=== PATIENT | male | born 1965 | race Caucasian/White ===

== ENCOUNTER 2022-01-02 08:36 | Outpatient (REF) | payer BC, SELFPAY ==
--- NOTE | ~2022-01-02 | US_ITS ---
EXAMINATION: US ABDOMEN LIMITED CLINICAL INFORMATION: Localized swelling, mass, lump, trunk. COMPARISON: None TECHNIQUE: Real-time imaging of the umbilical region. US/US abdomen limited FINDINGS/IMPRESSION: There is a fat-containing umbilical hernia measuring 2 x 0.9 x 1.3 cm. The neck measures approximately 0.9 cm. There is no evidence of reduction of the hernia in the provided images. Recommend clinical correlation for signs of infection or incarceration.
== END 2022-01-02 08:37 | disposition home or self-care (01) ==
LOC: HO.US 08:36
PROVIDERS: Visit Provider Family Medicine
DX: R22.2 Localized swelling, mass and lump, trunk (principal)
CPT/HCPCS: 76705

== ENCOUNTER 2022-07-11 07:38 | Outpatient (REF) | payer BC, SELFPAY ==
[2022-07-11 11:34] LABS: Appearance Urine Clear; Color Urine Yellow; Glucose Urine UA Negative (Negative); Leukocyte Esterase Urine Negative (Negative); Nitrite Urine Negative (Negative); Urine Blood Negative (Negative); Urine Ketones Negative (Negative); Urine Protein Negative (Neg-Trace)
[2022-07-11 12:23] LABS: Alanine Aminotransferase 20 U/L (0-40); Albumin Level 4.4 g/dL (3.5-5.0); Alkaline Phosphatase 64 U/L (39-117); Anion Gap 11 (12-20); Aspartate Amino Transferase 20 U/L (5-37); Bilirubin Total 0.9 mg/dL (0.0-1.0); Blood Urea Nitrogen 18 mg/dL (9-16); Calcium 9.4 mg/dL (8.4-10.2); Carbon Dioxide 27 mmol/L (22-29); Chloride 107 mmol/L (96-108); Cholesterol 237 mg/dL; Estimated Glomerular Filt Rate > 60; Glucose Fasting 90 mg/dL (60-99); HDL Cholesterol 48 mg/dL; LDL Cholesterol Calculated 165 mg/dl; Potassium 4.1 mmol/L (3.3-5.1); Sodium 141 mmol/L (135-145); TSH reflex Free T4 1.37 uIU/mL (0.32-4.0); Triglycerides 121 mg/dL
[2022-07-11 12:47] LABS: Microalbumin Urine < 5.0 mg/L
== END 2022-07-11 07:39 | disposition home or self-care (01) ==
LOC: HO.WFDLDS 07:38
PROVIDERS: Visit Provider Family Medicine
DX: Z00.00 Encounter for general adult medical examination without abnormal findings (principal); Z12.5 Encounter for screening for malignant neoplasm of prostate; I10 Essential (primary) hypertension
CPT/HCPCS: 36415; 80053; 80061; 81003; 82043; 84153; 84443

== ENCOUNTER 2022-10-07 07:09 | Outpatient (REF) | payer BC, SELFPAY ==
[2022-10-07 12:13] LABS: Anion Gap 18 (12-20); Blood Urea Nitrogen 19 mg/dL (9-16); Calcium 9.8 mg/dL (8.4-10.2); Carbon Dioxide 21 mmol/L (22-29); Chloride 107 mmol/L (96-108); Cholesterol 138 mg/dL; Estimated Glomerular Filt Rate > 60; Glucose Fasting 86 mg/dL (60-99); HDL Cholesterol 43 mg/dL; LDL Cholesterol Calculated 78 mg/dl; Potassium 3.9 mmol/L (3.3-5.1); Sodium 142 mmol/L (135-145); Triglycerides 87 mg/dL
== END 2022-10-07 07:10 | disposition home or self-care (01) ==
LOC: HO.WFDLDS 07:09
PROVIDERS: Visit Provider Family Medicine
DX: Z00.00 Encounter for general adult medical examination without abnormal findings (principal); E78.00 Pure hypercholesterolemia, unspecified
CPT/HCPCS: 36415; 80048; 80061

== ENCOUNTER 2022-10-17 08:19 | Outpatient (AMB) | payer BC, SELFPAY ==
--- NOTE | 2022-10-17 08:28 | MHC.PC.OV ---
Vital Signs 10/17/22 08:29 Height 5 ft 8 in Weight 186 lb 4 oz BMI 28.3 BP 116/78 Blood Pressure Location Lt brachial Position Sitting Respiration 14 Pulse 101 H Pulse Source Pulse Oximeter Temp 98.8 F Temp Source Temporal Artery Scan Pulse Oximetry (%) 97 Oxygen Delivery Method Room Air Intake Visit Reasons: f/u hypercholesterolemia Intake Note: Patient is here to discuss labs drawn on 10/07/2022 for hypercholesterolemia. Customer Marketing Intern Required: No Accompanied by: Self / Same As Patient Allergies No Known Allergies Allergy (Verified 10/17/22 08:29) Tobacco use date assessed: 10/17/22 Dental Screening Dental Screen Date: 10/17/22 Did you have a dental visit in the last 12 months?: Yes Did you have a dental problem in the last 6 months where you did not have access to dental care?: No Was dental information given to patient?: Patient has dentist HPI f/u hypercholesterolemia HPI Details 57 y/o male presents to f/u hypercholesterolemia. Had started him on artovastatin 20mg daily. Labs were drawn 10/07/22. Reviewed labs with pt. Triglycerides 87. TC 138. LDL 78. HDL 43. He is tolerating artovastatin well. PFSH Family History Mother Brain tumor Father Lung cancer Social History Housing: House Alcohol intake: never Patient Tobacco Use Status: Never used Tobacco e-Cigarette/Vaping Use: Never Used Second Hand Smoke Exposure: No service: Yes Current occupational status: employed Current occupation: [employer] Cognitive needs: No Hearing needs: No Vision needs: No Questionnaire Thrive Questionnaire Date Thrive assessed: 07/17/22 JANEEN-7 AMB Questionnaire JANEEN-7 Date JANEEN - 7 assessed: 07/17/22 Source: Developed by Drs. Armani Capone, Dolores Wyatt, Jewel Reddy and colleagues, with an educational michaela from [employer]. Review of Systems Const Denies chills, Denies fatigue, Denies fever(s), Denies headache(s) and Denies weakness ENT Denies dizziness and Denies headache(s) Card Denies dyspnea Resp Denies cough, Denies dyspnea, Denies wheezing and Denies other (shortness of breath) Musc Denies numbness and Denies tingling Neuro Denies dizziness, Denies headache(s), Denies numbness, Denies tingling and Denies weakness Psych Denies anxiety and Denies depression Endo Denies fatigue Aller/Immun Denies wheezing Physical exam (Primary Care) Vital Signs: Last Vital Signs Temp 98.8 F 10/17/22 08:29 Pulse 101 H 10/17/22 08:29 Resp 14 10/17/22 08:29 BP 116/78 10/17/22 08:29 Pulse Ox 97 10/17/22 08:29 Oxygen Delivery Method Room Air 10/17/22 08:29 BMI result Body Mass Index 28.3 Tobacco/Smoking Status: Tobacco use Status Tobacco use date assessed 10/17/22 10/17/22 08:29 Patient Tobacco Use Status Never used Tobacco 10/17/22 08:28 Tobacco use type 07/17/22 16:34 e-Cigarette/Vaping Use Never Used 10/17/22 08:28 Thrive Assessment: Date of Thrive Assessment Date Thrive assessed 07/17/22 10/17/22 08:28 Const General: well developed; No acute distress Nutritional Appearance: well nourished Orientation/consciousness: patient oriented x3 HENMT Head: Yes normocephalic and Yes atraumatic Eyes General: appearance normal, both eyes and all related structures Pupils: Equal, round and reactive pupils present EOM: EOMs intact bilaterally Resp Effort & Inspection: normal respiratory effort Neuro General: patient oriented x3 and gait normal Cranial nerves: Yes Equal, round and reactive pupils present Psych Affect: normal affect Assessment and Plan Assessment & Plan (1) Hypercholesterolemia: Code(s): E78.00 - Pure hypercholesterolemia, unspecified Plan: Tolerating atorvastatin 20 mg daily and cholesterol levels are all within normal limits now. Continue current medication and continue diet lower in saturated fats and cholesterol Continue exercise Coding Level of Care Code Est Pt Level 3 (29146) Diagnoses Hypercholesterolemia E78.00
[2022-10-17 08:29] VITALS: BP 116/78; PULSE 101; RESP 14; TEMP 37.1; O2SAT 97; BMI 28.3
== END 2022-10-17 09:00 | disposition home or self-care (01) ==
PROVIDERS: Visit Provider Family Medicine
DX: E78.00 Pure hypercholesterolemia, unspecified (principal)
CPT/HCPCS: 99213

== ENCOUNTER 2023-07-16 07:25 | Outpatient (REF) | payer BC, SELFPAY ==
[2023-07-16 11:55] LABS: Appearance Urine Clear; Color Urine Yellow; Glucose Urine UA Negative (Negative); Leukocyte Esterase Urine Negative (Negative); Nitrite Urine Negative (Negative); Urine Blood Negative (Negative); Urine Ketones Negative (Negative); Urine Protein Negative (Neg-Trace)
[2023-07-16 12:15] LABS: Alanine Aminotransferase 26 U/L (0-40); Albumin Level 4.4 g/dL (3.5-5.0); Alkaline Phosphatase 54 U/L (39-117); Anion Gap 12 (12-20); Aspartate Amino Transferase 24 U/L (5-37); Bilirubin Total 0.7 mg/dL (0.0-1.0); Blood Urea Nitrogen 21 mg/dL (9-16); Calcium 9.6 mg/dL (8.4-10.2); Carbon Dioxide 28 mmol/L (22-29); Chloride 106 mmol/L (96-108); Cholesterol 137 mg/dL (<200); Estimated Glomerular Filt Rate > 60; Glucose Fasting 92 mg/dL (60-99); HDL Cholesterol 44 mg/dL (>40); LDL Cholesterol Calculated 70 mg/dL (<100); Potassium 4.1 mmol/L (3.3-5.1); Sodium 142 mmol/L (135-145); Total Protein 7.4 g/dL (6.5-8.0); Triglycerides 118 mg/dL (<150)
[2023-07-16 12:24] LABS: Prostate Specific Antigen Scr 1.27 ng/mL (<0.05-4.0)
[2023-07-16 12:37] LABS: TSH reflex Free T4 1.03 uIU/mL (0.32-4.0)
[2023-07-16 12:42] LABS: Creatinine Urine 103.02 mg/dL; Microalbumin Urine < 5.0 mg/L
== END 2023-07-16 07:26 | disposition home or self-care (01) ==
LOC: HO.WFDLDS 07:25
PROVIDERS: Visit Provider Family Medicine
DX: Z00.00 Encounter for general adult medical examination without abnormal findings (principal); I10 Essential (primary) hypertension; Z12.5 Encounter for screening for malignant neoplasm of prostate
CPT/HCPCS: 36415; 80053; 80061; 81003; 82043; 82570; 84153; 84443

== ENCOUNTER 2023-07-27 08:48 | Outpatient (AMB) | payer BC, SELFPAY ==
--- NOTE | 2023-07-27 08:51 | A.OFFPC_ITS ---
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 Required: No Allergies No Known Allergies Allergy (Verified 07/27/23 08:52) Medication List - Last Reconciled 07/27/23 by Nely Pride MD atorvastatin 20 mg PO BEDTIME 90 days Tobacco use date assessed: 07/27/23 Dental Screening Dental Screen Date: 07/27/23 Did you have a dental visit in the last 12 months?: Yes Did you have a dental problem in the last 6 months where you did not have access to dental care?: No Was dental information given to patient?: Patient has dentist HPI HPI Comments History of Present Illness Details 58 year old male with a past medical his tory of hyperlipidemia, elevated psa, presenting for physical exam Denies new health concerns. CV: on atorvastatin. Denies chest pain, dyspnea. Lipids reviewed and at goal Uro: History of elevated psa. Was seen by urology, he believes at [facility]. He underwent biopsy which he said was reassuring. His recent psa is normal range He cannot recall last colonoscopy but believes he may be due. [facility] Surgical History (Updated 07/27/23 @ 08:52 by Nathan Davidson CMA) No pertinent past surgical history Family History Mother Brain tumor Father Lung cancer Social History Housing: House Alcohol intake: never Patient Tobacco Use Status: Never used Tobacco e-Cigarette/Vaping Use: Never Used Second Hand Smoke Exposure: No service: Yes Current occupational status: employed Current occupation: [employer] Cognitive needs: No Hearing needs: No Vision needs: No Questionnaire PHQ-9 Over the last 2 weeks, how often have you been bothered by any of the following problems? 1. Little interest or pleasure in doing things: not at all 2. Feeling down, depressed, or hopeless: not at all 3. Trouble falling or staying asleep, or sleeping too much: not at all 4. Feeling tired or having little energy: not at all 5. Poor appetite or overeating: not at all 6. Feeling bad about yourself - or that you are a failure or have let yourself or your family down: not at all 7. Trouble concentrating on things, such as reading the newspaper or watching television: not at all 8. Moving or speaking so slowly that other people could have noticed. Or the opposite - being so fidgety or restless that you have been moving around a lot more than usual: not at all 9. Thoughts that you would be better off or of hurting yourself in some way: not at all Total score: 0 Depression Screening Interpretation: Negative (neg) Depression Screening Done: Yes 17126 - PHQ-9 Billing: Yes Source: Developed by Drs. Armani Capone, Dolores Wyatt, Jewel Reddy and colleagues, with an educational michaela from [employer]. Thrive Questionnaire Date Thrive assessed: 07/27/23 I am a: Patient What is your living situation today?: I have a steady place to live Within the past 12 months, did the food you bought not last and you didn't have the money to get more?: Never true Within the past 12 months, did you worry whether your food would run out before you got money to buy more?: Never true Do you have trouble paying for medicines?: No Do you have trouble getting transportation to medical appointments?: No Do you have trouble paying your heating and electricity bill?: No Do you have trouble taking care of your child, family member or friend?: No Do you have trouble with day-to-day activities such as bathing, preparing meals, shopping, managing finances, etc.?: No Are you currently unemployed and looking for a job?: No Are you interested in more education?: No Please select the resources that you would like help with: None Currently or been in a relationship where the following occur: no concerns reported THRIVE Score: 0 AUDIT C Alcohol Use Questionnaire (AUDIT-C) 1. How often do you have a drink containing alcohol?: Never 3. How often do you have six or more drinks on one occasion?: Never Total Score: 0 Score Reviewed/Action Taken: Yes JANEEN-7 AMB Questionnaire JANEEN-7 Date JANEEN - 7 assessed: 07/27/23 Feeling nervous, anxious, or on edge: 0 = Not at all Not being able to stop or control worryin = Not at all Worrying too much about different things: 0 = Not at all Trouble relaxin = Not at all Being so restless that it is hard to sit still: 0 = Not at all Becoming easily annoyed or irritable: 0 = Not at all Feeling afraid as if something awful might happen: 0 = Not at all Total JANEEN-7 score (0-4 normal; 5-9 mild; 10-14 moderate; 15-21 severe): 0 Source: Developed by Drs. Armani Capone, Dolores Wyatt, Jewel Reddy and colleagues, with an educational michaela from [employer]. JANEEN-7 Assessment Billing JANEEN-7 Assessment Tool: JANEEN-7 Assessment [id number] Review of Systems Const Details: ROS CONSTITUTIONAL: Denies weight loss, fever and chills. HEENT: Denies changes in vision and hearing. RESPIRATORY: Denies SOB and cough. CV: Denies palpitations and CP GI: Denies abdominal pain, nausea, vomiting and diarrhea. : Denies dysuria and urinary frequency. MSK: Denies new myalgia and joint pain. SKIN: Denies rash and pruritus. NEUROLOGICAL: Denies headache PSYCHIATRIC: Denies recent changes in mood. Physical exam (Primary Care) Vital Signs: Last Vital Signs Pulse 60 07/27/23 08:52 BP 120/76 07/27/23 08:52 Pulse Ox 100 07/27/23 08:52 PHYSICAL EXAM: GENERAL: Alert and oriented x 3. NAD EYES: EOMI. Anicteric. HENT: Moist mucous membranes. No scleral icterus. No cervical lymphadenopathy. LUNGS: Clear to auscultation bilaterally. CARDIOVASCULAR: Regular rate and rhythm. No murmur. No JVD. ABDOMEN: Soft, non-tender +bs EXTREMITIES: No edema. Non-tender. SKIN: No rashes or lesions. Warm. NEUROLOGIC: No focal neurological deficits. CN II-XII grossly intact PSYCHIATRIC: Cooperative. Appropriate mood and affect BMI result Body Mass Index 28.1 Tobacco/Smoking Status: Tobacco use Status Tobacco use date assessed 07/27/23 07/27/23 08:57 Patient Tobacco Use Status Never used Tobacco 07/27/23 08:51 Tobacco use type 07/17/22 16:34 e-Cigarette/Vaping Use Never Used 07/27/23 08:51 PHQ-9: PHQ-9 Score PHQ-9: Total score 0 07/27/23 15:07 Depression Screening Interpretation: Negative (neg) Thrive Assessment: Date of Thrive Assessment Date Thrive assessed 07/27/23 07/27/23 08:57 Currently or been in a relationship where the following occur: no concerns reported Assessment and Plan Assessment & Plan (1) Screening for prostate cancer: Code(s): Z12.5 - Encounter for screening for malignant neoplasm of prostate (2) Screening for colon cancer: Code(s): Z12.11 - Encounter for screening for malignant neoplasm of colon (3) Physical exam: Code(s): Z00.00 - Encounter for general adult medical examination without abnormal findings Plan: The patient was evaluated today for annual preventive exam He was counseled about healthy lifestyle habits, including: Smoking cessation Limiting alcohol intake Receiving age-appropriate immunizations at recommended intervals Hypertension in all men Diabetes mellitus Dyslipidemia Prostate cancer Colorectal cancer Lung cancer in men 55 to 80 years of age who have at least a 59-[id number]-cusf smoking history and currently smoke or have quit within the past 15 years Orders: Referrals Open Access Screening Colonoscopy Referral Z12.11 - Encounter for screening for malignant neoplasm of colon, Z12.12 - Encounter for screening for malignant neoplasm of rectum Coding Level of Care Code New Pt Prev Care 40-64y([id number]) Diagnoses Screening for prostate cancer Z12.5 Screening for colon cancer Z12.11 Physical exam Z00.00 Additional Codes JANEEN-7 Assessment Billing - JANEEN-7 Assessment Tool: JANEEN-7 Assessment [id number] ([id number])
[2023-07-27 08:52] VITALS: BP 120/76; PULSE 60; O2SAT 100; BMI 28.1
== END 2023-07-27 09:55 | disposition home or self-care (01) ==
PROVIDERS: PCP Family Medicine; Visit Provider Internal Medicine
DX: Z12.5 Encounter for screening for malignant neoplasm of prostate (principal); Z12.11 Encounter for screening for malignant neoplasm of colon; Z00.00 Encounter for general adult medical examination without abnormal findings
CPT/HCPCS: 99386